=== PATIENT | female | born 1985 | race Caucasian/White ===

== ENCOUNTER → 2017-08-08 | Outpatient (CLI) | payer SELFPAY ==
[~2017-08-08] MED LIST: IODINE PO; VITA10002 PO; VITA500T10 PO
== END ==
LOC: HPND 10:09
PROVIDERS: ATTEND Obstetrics & Gynecology
DX: Z36.82 Encounter for antenatal screening for nuchal translucency (principal)
CPT/HCPCS: 36415; 76813

== ENCOUNTER → 2017-09-19 | Outpatient (CLI) | payer OTHER, MEDICAID | LOC: HPND 09:36 | PROVIDERS: ATTEND Obstetrics & Gynecology | DX: Z36.2 Encounter for other antenatal screening follow-up (principal) | CPT/HCPCS: 76805 ==

== ENCOUNTER → 2017-10-17 | Outpatient (CLI) | payer OTHER, MEDICAID | LOC: HPND 09:32 | PROVIDERS: ATTEND Obstetrics & Gynecology | DX: Z36.2 Encounter for other antenatal screening follow-up (principal) | CPT/HCPCS: 76816 ==

== ENCOUNTER 2018-02-05 09:43 | Inpatient (IN) ==
[2018-02-05] MEDS ORDERED: fentaNYL Citrate Inj 100 MCG/2 ML Ampul IV.PUSH PRN ×2 (11:04)
[2018-02-05] MEDS ORDERED: Sodium Chlor 0.9% Inj 500 ML IV.SIG ONE (11:04)
[2018-02-05] MEDS ORDERED: Naloxone Inj 0.4 MG/ML Vial IV.PUSH PRN ×2 (11:04→13:54)
[2018-02-05] MEDS ORDERED: ceFAZolin Inj 2,000 MG in Sodium Chlor 0.9% Inj 80 ML IV.SIG ONE (11:04)
[2018-02-05] MEDS ORDERED: Oxytocin 30 Units/500ml Premix 30 UNITS/500 ML BAG IV.SIG ONE ×2 (11:04→12:44)
[2018-02-05] MEDS ORDERED: Dextrose 5%/Lactated Ringer's 1,000 ML IV.SIG ONE (11:14)
[2018-02-05] MEDS ORDERED: Sod Chloride 0.9% Inj 1,000 ML IV.CONT SCH (11:15)
[2018-02-05] MEDS ORDERED: Citric Acid/Sodium Citrate Liq 15 ML UDC PO SCH (11:15)
[2018-02-05] MEDS ORDERED: Morphine Sulfate PF Inj 5 MG/10 ML Ampul ONE (11:22)
[2018-02-05] MEDS ORDERED: Citric Acid/Sodium Citrate Liq 30 ML UDC ONE (11:25)
--- NOTE | 2018-02-05 11:27 | ED ---
Triage/Final Diagnosis - Visit Information Date of evaluation: 02/05/18 Reason for evaluation: threatened labor - Evaluation Baseline heart rate: 150 (The patient appeared to have some late appearing decelerations. resuscitation was initiated wtih administration of oxygen, an IVF bolus, patient repositioning, and 0.25mg SQ terbutaline with resolution of heart rate decelerations and improvement of variability.) Variability: Average (6-10) monitor decelerations: Late Cervical dilation (cm): 4 Cervical effacement (%): 90 station: -2 Vital signs: Vital Signs - 24 hr 02/05/18 10:21 02/05/18 10:28 02/05/18 11:01 Temperature 98.3 F Pulse Rate 75 89 Respiratory Rate 20 Blood Pressure 157/100 H 146/90 H History of Present Illness Service: Dr. Dominique DAVIS Primary Care Physician: No Primary Care Physician Chief Complaint: Contractions History of Present Illness: 32-year-old 010, IUP at 38.6 care complicated by obesity The patient presents complaining of the onset of painful contractions at 5 PM last night. She reports they increased in intensity and frequency approximately 2 AM. She reports that at this time she is feeling 4-5 contractions an hour. She denies any alleviating factors are attempted treatments. She reports good movement. She denies any leaking of fluid or vaginal bleeding. She denies any headache, visual changes, right upper quadrant or epigastric pain. She has no other obstetrical complaints or concerns today. Weeks Gestation:: 38 Para: 0 : 2 Total # of Miscarriage(s): 1 Total # of Abortions (Spontaneous & Elective): 1 - Inpatient Certification If this patient has been admitted as an Inpatient: I certify that the inpatient services were ordered in accordance with Medicare regulations governing the order. This includes certification that hospital inpatient services are reasonable and necessary and in the case of services not specified as inpatient-only under 42 CFR 419.22(n), that they are appropriately provided as inpatient services in accordance to with the 2-midnight benchmark under 43 CFR 412.3(e) Estimated Total Length of Stay (Days): 3 Plans for Post Hospital Care: Home [facility] Medical history: Obesity Cognitive capacity: Normal Functional capacity: independent ambulation Patient : Yes Pertinent family history: CAD [place] HTN Depression DM Surgical history: Sinus surgery Tonsillectomy Smoking status: Never smoker Substance use type: does not use Alcohol intake: never Physical Exam Vital signs: Temp Pulse Resp BP 98.3 F 89 20 146/90 H 02/05/18 10:28 02/05/18 11:01 02/05/18 10:28 02/05/18 11:01 BP elevated, as per EMR - Constitutional no acute distress - Routine HEENT Exam Head: Present: normocephalic, atraumatic Eye: Present: EOMI, PERRL, conjunctivae pink ENT: Present: mucous membranes moist - Routine Respiratory Exam Present: CTA bilaterally - Routine Cardiovascular Exam Present: RRR - Routine Abdominal Exam Present: soft, normoactive bowel sounds Comments: Gravid, nontender, nondistended - Routine Exam Patient deferred: external exam External: Present: normal urethra appearance Perineal: Present: Intact - Detailed Labor and Delivery Exam Dilation (cm): 4 Effacement (%): 90 Cervix position: posterior station: -2 Consistency: soft Membranes: Intact - Routine Extremities Exam Present: full ROM - Routine Back/Spine/Pelvis Exam Back/Spine: Present: full ROM - Routine Skin Exam Present: intact, dry, warm - Routine Neurological Exam Present: alert, oriented X3, CN II-XII intact - Routine Psychiatric Exam Present: normal affect, normal thought process, cooperative, good insight, good judgment Assessment and Plan - Plan Assessment/plan: 1. IUP at 30.6 2. heart rate decelerations: Possible late appearing heart rate decelerations were noted in the OB ED. These heart rate decelerations have resolved with IV fluids, oxygen, repositioning, and subcutaneous terbutaline. Dr. Fox was notified and agreement with proceeding with primary delivery. The patient was consented for delivery including but not limited to pain, infection, bleeding, injury to other organs like the bladder/bowel/nerves/vessels, need for repeat operation, need for hysterectomy, need for a blood transfusion, wound infection/breakdown, injury to the baby, and other possible risks. All of patient's questions were answered and consent was signed. Preop orders were placed 3. Elevated blood pressures: Patient has no symptoms of preeclampsia but presented with elevated blood pressures. Preeclampsia workup was initiated and results are still pending. 4. Obesity 5. Early active versus late latent labor: The patient does not appear to be in full active labor. 6. Care was assumed by Dr. Fox. ADDENDUM: NST REPORT Indications: IUP at 38w, elevated BP, contractions, obesity heart rate with baseline in the 140s-150s, initially moderate buttermaker helper variability, but variability appeared to decrease and some possible late appearing decelerations were noted. resuscitative measures were performed with Oxygen administered, IVF bolus given, 0.25 mg terbutaline administered subcutaneously, and repositioning was performed. The decision was made to proceed with delivery. The decelerations resolved and variability improved. Dr. Fox assumed care for the patient who was taken to the OR. Final diagnosis: IUP at 38w, elevated BP consistent with preeclampsia, early labor, obesity. Follow up: continued monitoring until proceeded to OR Review of Systems All other systems reviewed negative except as stated in HPI (A complete ROS was performed)
[2018-02-05 11:32] LABS: Baso # (Auto) 0.1 th/mm3 (0.0-0.2); Baso % (Auto) 0.4 % (0.0-2.0); Eos # (Auto) 0.1 th/mm3 (0.0-0.4); Eos % (Auto) 0.8 % (0.0-4.0); Hematocrit 41.2 % (35.0-46.0); Hemoglobin 13.5 gm/dL (11.6-15.3); Lymph # (Auto) 2.1 th/mm3 (1.0-4.8); Lymph % (Auto) 17.1 % (9.0-44.0); Mean Corpuscular HGB Conc 32.8 % (32.0-36.0); Mean Corpuscular Hemoglobin 28.1 pg (27.0-34.0); Mean Corpuscular Volume 85.9 fL (80.0-100.0); Mean Platelet Volume 9.4 fL (7.0-11.0); Mono # (Auto) 0.6 th/mm3 (0.0-0.9); Neut # (Auto) 9.6 th/mm3 (1.8-7.7); Neut % (Auto) 76.7 % (16.0-70.0); Platelet Count 268 th/mm3 (150-450); Red Cell Distribution Width 15.8 % (11.6-17.2); White Blood Count 12.5 th/mm3 (4.0-11.0)
[2018-02-05 11:46] LABS: Amphetamine Urine With Conf Neg (Neg); Benzodiazepine Urine With Conf Neg (Neg)
[2018-02-05 11:47] LABS: Protein/Creatinine Ratio,Urine 2.23 (0.00-0.14)
[2018-02-05 11:56] LABS: Alkaline Phosphatase 171 U/L (45-117); Total Protein 6.9 g/dL (6.4-8.2)
--- NOTE | 2018-02-05 11:56 | MH ---
cc: Corby Fox MD DATE OF ADMISSION: 02/05/2018 ADMITTING DIAGNOSIS: Term , active labor with late decelerations. HISTORY OF PRESENT ILLNESS: The patient is a 32-year-old white female, para 0-0-1-0, LMP of 05/02/2017, EDC 02/06/2018 by dates and 02/13/2018 by early ultrasound. Her course has been benign. She had increasing contractions throughout the night. She is admitted now at 4 cm with repetitive late decelerations. She is now prepared for immediate section. PAST SURGICAL HISTORY: In 1992, a T and A; 2008, 2010, 2011 and 2016, she had sinus surgery. MEDICATIONS: Vitamins. ALLERGIES: NONE. TRANSFUSIONS: None. OBSTETRIC HISTORY: One spontaneous in 2016 at 5-6 weeks. SOCIAL HISTORY: She is single. She works at [employer] in the [employer] [facility]. Alcohol, tobacco and drugs are none. FAMILY HISTORY: Noncontributory. PHYSICAL EXAMINATION: GENERAL: She is a well-nourished, well-developed white female. VITAL SIGNS: Stable. HEENT: Normal. CHEST: Clear. HEART: Regular rate. BREASTS: Symmetrical. ABDOMEN: Gravid. EFW is 3500 grams. PELVIC: Cervix is 4, 90, intact, vertex. ASSESSMENT AND PLAN: Term , active labor with late decelerations. She is now prepared for immediate section delivery. The risks, benefits, and complications were explained and accepted. MD NICOLE Stevenson/HUYEN , 11:38 AM , 11:54 AM
[2018-02-05] MEDS ORDERED: Phenylephrine/NS 1000 MCG/10ML Syringe IV.PUSH ONE (12:00)
[2018-02-05 12:01] LABS: Alanine Aminotransferase 20 U/L (10-53); Albumin 2.6 g/dL (3.4-5.0); Anion Gap 12 meq/L (5-15); Aspartate Aminotransferase 25 U/L (15-37); Blood Urea Nitrogen 8 mg/dL (7-18); Calcium 8.9 mg/dL (8.5-10.1); Carbon Dioxide 20.5 meq/L (21.0-32.0); Chloride 108 meq/L (98-107); Glomerular Filtration Rate Greater Than 89 mL/min (>89); Glucose,Random 77 mg/dL (74-106); Sodium 140 meq/L (136-145); Uric Acid 7.1 mg/dl (2.6-6.0)
[2018-02-05 12:26] LABS: Cord Arterial Blood HCO3 23.5
[2018-02-05] MEDS ORDERED: Senna/Docusate Sodium 8.6/50 MG Tablet PO PRN (12:44)
[2018-02-05] MEDS ORDERED: Zolpidem Tartrate 5 MG Tablet PO PRN (12:44)
--- NOTE | 2018-02-05 12:48 | MP ---
cc: Corby Fox MD DATE OF OPERATION: 02/05/2018 PREOPERATIVE DIAGNOSES: 1. Term . 2. Active labor with late decelerations. POSTOPERATIVE DIAGNOSES: 1. Term . 2. Active labor with late decelerations. 3. Tight nuchal cord. 4. Partial abruption 5. Delivered. 6. Right paratubal cyst. PROCEDURE PERFORMED: 1. Primary low transverse section. 2. Removal of right paratubal cyst. ANESTHESIA: Spinal. SURGEON: Corby Fox MD FRUIT DUMPER: Maira ESTIMATED BLOOD LOSS: 500 mL. FLUIDS: 1.6 liters crystalloid. OBJECTIVE FINDINGS: Following induction of adequate spinal anesthesia, the patient was prepped and draped supine on the operating table in left lateral tilt position in the usual sterile fashion with the bladder being drained by Trujillo catheterization. The abdomen was opened through a Pfannenstiel incision using a knife to cut down through the skin to the fascia. The fascia opened transversely, stripped from the muscles, rectus muscle split in the midline and the peritoneum opened sharply without incident. The bladder flap was taken down sharply, retracted inferiorly with a Preet blade. The lower uterine segment incised transversely with a knife, extended with blunt dissection. Membranes ruptured revealing clear fluid. Baby was in the LOT position. The vacuum extractor applied to the occiput and used to gently lift the head through the uterine abdominal wound. Mouth was suctioned, cord clamped and cut and the baby passed to the awaiting team. A viable vigorous female, Apgars 9 and 9, weight 6 pounds even with a tight nuchal cord. Cord blood collected for typing and for ABG, ABG first, typing second. This was collected. There were a few clots behind the placenta with about 20% partial abruption. Uterine cavity wiped cleaned with laps. Uterus exteriorized and closed in 2 layers of running suture, first with a running locking stitch of 0 Vicryl, second with running imbricating stitch of 0 Vicryl. Posterior inspection was normal on the left. The right tube had a 3 cm paratubal cyst. The cyst wall was excised with a Bovie and sent for permanent study. The remainder of the tube and ovary were normal. The uterus was placed in the peritoneal cavity. Irrigation was performed. No bleeding was evident and the bladder flap was closed with a running stitch of 3-0 Vicryl. All laps and retractors were removed. Counts were correct. The anterior peritoneum closed with running 2-0 Vicryl. The fascia closed with a running #1 PDS corner to midline and tied, subcutaneous 3-0 Vicryl. The skin with a running subcuticular 3-0 Monocryl. Dermabond applied. All counts were correct and the patient was awakened and taken to the recovery room in good condition. MD NICOLE Stevenson/REBECCA , 12:33 PM , 12:46 PM
[2018-02-05] MEDS ORDERED: Oxytocin 30 Units/500ml Premix 30 UNITS/500 ML BAG ONE (13:07)
[2018-02-05] MEDS: Ketorolac Inj 30 MG/ML (IVP) Vial IV.PUSH PRN (17:34)
[2018-02-05] MEDS ORDERED: Oxytocin 30 Units/500ml Premix 30 UNITS/500 ML BAG IV.SIG PRN (17:44)
[2018-02-06] MEDS: Ketorolac Inj 30 MG/ML (IVP) Vial IV.PUSH PRN (03:41)
[2018-02-06 05:51] LABS: Baso % (Auto) 0.3 % (0.0-2.0); Eos # (Auto) 0.1 th/mm3 (0.0-0.4); Eos % (Auto) 0.6 % (0.0-4.0); Hemoglobin 11.5 gm/dL (11.6-15.3); Lymph # (Auto) 2.7 th/mm3 (1.0-4.8); Lymph % (Auto) 19.1 % (9.0-44.0); Mean Corpuscular HGB Conc 32.8 % (32.0-36.0); Mean Corpuscular Hemoglobin 28.1 pg (27.0-34.0); Mean Corpuscular Volume 85.6 fL (80.0-100.0); Mean Platelet Volume 8.3 fL (7.0-11.0); Mono # (Auto) 0.8 th/mm3 (0.0-0.9); Mono % (Auto) 5.4 % (0.0-8.0); Neut # (Auto) 10.7 th/mm3 (1.8-7.7); Neut % (Auto) 74.6 % (16.0-70.0); Platelet Count 221 th/mm3 (150-450); Red Blood Count 4.09 mil/mm3 (4.00-5.30); Red Cell Distribution Width 15.6 % (11.6-17.2); White Blood Count 14.3 th/mm3 (4.0-11.0)
--- NOTE | 2018-02-06 13:52 | MB ---
cc: Lara Bermudez MD DATE: 02/06/2018 REASON FOR CONSULTATION: Shortness of breath. HISTORY OF PRESENT ILLNESS: Mrs. Cantu is a 32-year-old female who is day 1 complaining of shortness of breath . The patient does have a longstanding history of bronchial asthma and allergic rhinitis. 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 Presently does not see a chemical lab technician or an paint stripper and does have albuterol, which she uses on occasion. Her chest wheeze has improved since she received the bronchodilator therapy. She did have intermittent wheezing throughout her , per her mother, who is at her bedside. She denies history of fever, chills, cough or expectoration. No shortness of breath at present. PAST MEDICAL HISTORY: Allergic rhinitis, and bronchial asthma. FAMILY HISTORY: Noncontributory. REVIEW OF SYSTEMS: A 12 point review of systems as per HPI and past history, otherwise negative. PHYSICAL EXAMINATION: GENERAL: On exam, the patient is alert. VITAL SIGNS: Temperature 98, pulse 70, respirations 18, blood pressure 130/78. HEENT: Unremarkable. Eyes without icterus. NECK: Without adenopathy, thyroid enlargement. Central trachea. CHEST: Scattered wheezes bilaterally. Good air movement. CARDIAC: PMI distant. S1, S2 audible. No murmur. No rub. ABDOMEN: Lax, bowel sounds audible. EXTREMITIES: No clubbing, cyanosis. Trace edema. IMPRESSION: 1. Bronchial asthma. 2. Allergic rhinitis. 3. . PLAN: 1. The patient was given Symbicort 160, to use 1 inhalation twice daily. 2. P.r.n. albuterol. 3. Obtain pulmonary function. 4. We will follow the patient's course along with you and, depending on progress, proceed further. I do thank you for asking me to partake in Mrs. Cantu care. Lara Bermudez MD WWW/TL , 01:37 PM , 01:51 PM
[2018-02-06] MEDS ORDERED: Measles/Mumps/Rubella Vaccine Inj 0.5 ML Vial SQ ONE (16:00)
[2018-02-06] MEDS ORDERED: Diphtheria/Tetanus/Pertussis Vaccine Inj 0.5 ML Syringe IM ONE (16:00)
[2018-02-06] MEDS: Ibuprofen 600 MG Tablet PO PRN (21:24)
[2018-02-06] MEDS: Budesonide-Formoterol 160/4.5 MCG 6 GM Inhaler INH SCH (21:51)
[2018-02-07] MEDS: Budesonide-Formoterol 160/4.5 MCG 6 GM Inhaler INH SCH ×2 (10:00→21:39)
[2018-02-07] MEDS: Ibuprofen 600 MG Tablet PO PRN ×2 (15:27→21:38)
--- NOTE | 2018-02-07 16:42 | P.PN ---
Subjective Interval history: ALERT NO DISTRESS OCCASIONAL WHEEZE Physical Exam Vital signs: Vital Signs 02/06/18 19:37 02/06/18 20:00 02/06/18 23:56 Temperature 98.3 F Pulse Rate 82 86 84 Respiratory Rate 14 18 12 Blood Pressure 135/93 H 02/07/18 03:26 02/07/18 07:09 02/07/18 08:38 Temperature 98.3 F Pulse Rate 80 80 97 H Respiratory Rate 12 15 18 Blood Pressure 140/96 H 02/07/18 12:14 Temperature Pulse Rate 79 Respiratory Rate 16 Blood Pressure - Routine Respiratory Exam Present: wheezes - Routine Abdominal Exam Present: soft Results - Labs CBC & Chem 7: 02/06/18 05:40 02/05/18 10:50 Assessment and Plan - Assessment (1) Asthma attack Code(s): J45.901 - Unspecified asthma with (acute) exacerbation Status: Acute - Plan Code Status: SYMBICRT BID PRN ALBUTEROL
[2018-02-08] MEDS: Ibuprofen 600 MG Tablet PO PRN (04:28)
--- NOTE | 2018-02-08 09:39 | P.PNOB ---
Subjective Post day: 3 (doibng well post CS) Objective Vital Signs/I&O: Vital Signs 02/07/18 12:14 02/07/18 17:15 02/07/18 20:00 Temperature 98.1 F Pulse Rate 79 82 97 H Respiratory Rate 16 20 20 Blood Pressure 157/97 H 02/07/18 20:32 02/07/18 20:45 02/07/18 23:45 Temperature 98.1 F Pulse Rate 97 H 98 H 82 Respiratory Rate 20 20 14 Blood Pressure 157/97 H 02/08/18 03:44 02/08/18 04:30 02/08/18 08:00 Temperature 98.2 F Pulse Rate 80 98 H 97 H Respiratory Rate 12 20 18 Blood Pressure 138/94 H 145/97 H 02/08/18 08:23 Temperature Pulse Rate 78 Respiratory Rate 15 Blood Pressure Result Diagrams: 02/06/18 05:40 02/05/18 10:50 Objective Remarks: GENERAL: Well-nourished, well-developed patient. ABDOMEN/GI: Abdomen soft, non-tender. Fundus: Firm, non-tender at umbilicus. GENITOURINARY: Light to moderate bleeding. EXTREMITIES: No cyanosis or edema, non-tender, without signs of DVT. Medications and IVs: Active Medications Albuterol (Albuterol Neb (Josué)) 2.5 mg NEB Q4HR NEB JOSUÉ Last Admin: 02/08/18 08:23 Dose: 2.5 mg Albuterol (Albuterol Neb (Prn)) 2.5 mg NEB Q2HR NEB PRN PRN Reason: WHEEZING Budesonide/Formoterol Fumarate (Symbicort 160/4.5 Mcg Inh) 1 puff INH BID [facility] Last Admin: 02/07/18 21:39 Dose: 1 puff Citric Acid/Sodium Citrate (Sod Citrate/Citric Acid Liq) 30 ml PO SECURITIES ADVISER [facility] Stop: 02/09/18 11:14 Lactated Ringer's (Lr 1000 Ml Inj) 1,000 mls @ 125 mls/hr IV.CONT .Q8H JOSUÉ Last Admin: 02/06/18 03:42 Dose: 125 mls/hr Sodium Chloride (Ns Inj) 1,000 mls @ 100 mls/hr IV.CONT .Q10H [facility] Lactated Ringer's (Lr 1000 Ml Inj) 1,000 mls @ 150 mls/hr IV.CONT .Q6H40M JOSUÉ Acetaminophen (Ofirmev Inj) 1,000 mg in 100 mls @ 200 mls/hr IV.SIG Q8H JOSUÉ Last Admin: 02/06/18 13:46 Dose: 200 mls/hr Ketorolac Tromethamine (Toradol Inj) 30 mg IV.PUSH Q6H PRN PRN Reason: POST CRAMPING Stop: 02/10/18 17:59 Last Admin: 02/06/18 03:41 Dose: 30 mg Lidocaine HCl (Xylocaine 1% Inj) 0.1 ml INFILTRATN PRN PRN PRN Reason: For IV start Stop: 02/08/18 11:03 Mineral Oil (Muri-Lube Oil) 10 ml TOPICAL PRN PRN PRN Reason: PRN perineal massage Naloxone HCl (Narcan Inj) 0.1 mg IV.PUSH Q2M PRN PRN Reason: for opiate reversal Ondansetron HCl (Zofran Odt) 4 mg PO Q6H PRN PRN Reason: NAUSEA Ondansetron HCl (Zofran Inj) 4 mg IV.PUSH Q6H PRN PRN Reason: NAUSEA Last Admin: 02/05/18 17:18 Dose: 4 mg Oxycodone/Acetaminophen (Percocet 5/325 Mg) 1 tab PO Q4H PRN PRN Reason: PAIN SCALE 3 TO 5 Last Admin: 02/08/18 04:28 Dose: 1 tab Oxycodone/Acetaminophen (Percocet 5/325 Mg) 2 tab PO Q4H PRN PRN Reason: PAIN SCALE 6 TO 10 Last Admin: 02/07/18 15:27 Dose: 2 tab Promethazine HCl (Phenergan Inj) 25 mg IM Q6H PRN PRN Reason: NAUSEA NOT RELIEVED BY ZOFRAN Last Admin: 02/05/18 19:44 Dose: 25 mg Senna/Docusate Sodium (Marj-Colace) 2 tab PO Q12H PRN PRN Reason: CONSTIPATION Sodium Chloride (Ns Flush) 2 ml IV.FLUSH BID JOSUÉ Sodium Chloride (Ns Flush) 2 ml IV.FLUSH PRN PRN PRN Reason: FLUSH AFTER USING IV ACCESS Zolpidem Tartrate (Ambien) 5 mg PO HS PRN PRN Reason: INSOMNIA Assessment and Plan - Diagnosis (1) delivery delivered Code(s): O82 - Encounter for delivery without indication Status: Acute - Plan Assessment/plan: 1. IUP at 30.6 2. heart rate decelerations: Possible late appearing heart rate decelerations were noted in the OB ED. These heart rate decelerations have resolved with IV fluids, oxygen, repositioning, and subcutaneous terbutaline. Dr. Fxo was notified and agreement with proceeding with primary delivery. The patient was consented for delivery including but not limited to pain, infection, bleeding, injury to other organs like the bladder/bowel/nerves/vessels, need for repeat operation, need for hysterectomy, need for a blood transfusion, wound infection/breakdown, injury to the baby, and other possible risks. All of patient's questions were answered and consent was signed. Preop orders were placed 3. Elevated blood pressures: Patient has no symptoms of preeclampsia but presented with elevated blood pressures. Preeclampsia workup was initiated and results are still pending. 4. Obesity 5. Early active versus late latent labor: The patient does not appear to be in full active labor. 6. Care was assumed by Dr. Fox. ADDENDUM: NST REPORT Indications: IUP at 38w, elevated BP, contractions, obesity heart rate with baseline in the 140s-150s, initially moderate transportation agent variability, but variability appeared to decrease and some possible late appearing decelerations were noted. resuscitative measures were performed with Oxygen administered, IVF bolus given, 0.25 mg terbutaline administered subcutaneously, and repositioning was performed. The decision was made to proceed with delivery. The decelerations resolved and variability improved. Dr. Fox assumed care for the patient who was taken to the OR. Final diagnosis: IUP at 38w, elevated BP consistent with preeclampsia, early labor, obesity. Follow up: continued monitoring until proceeded to OR Discharge Planning: patient has slightly elevated BP recheck with ashtyn next week
--- NOTE | 2018-02-08 09:50 | MD ---
cc: Corby Carbajal MD DATE OF DISCHARGE: 02/08/2018 HOSPITAL COURSE: This is a 32-year-old patient who came in. Dr. Fox did a section. She remained in the hospital 3 days doing very well. She will followup with Dr. Fox in 1 week. She had a slightly elevated blood pressure 140s/90 range. The patient will watch her blood pressure at home and notify him for any difficulties. The patient is on pelvic rest, regular diet and activity. No heavy lifting. She will get a prescription for Percocet #20 tablets. Corby Carbajal MD JWM/DL , 09:42 AM , 09:49 AM
== END 2018-02-08 12:48 | disposition home or self-care (01) ==
LOC: HOBED 09:43 → H2E 11:15 → H1EA 13:51
PROVIDERS: ADMIT Obstetrics & Gynecology; ATTEND Obstetrics & Gynecology
DX: O76 Abnormality in fetal heart rate and rhythm complicating labor and delivery; J45.909 Unspecified asthma, uncomplicated; Z3A.38 38 weeks gestation of pregnancy; Z37.0 Single live birth; R03.0 Elevated blood-pressure reading, without diagnosis of hypertension; O45.93 Premature separation of placenta, unspecified, third trimester; Z68.41 Body mass index [BMI] 40.0-44.9, adult; E66.9 Obesity, unspecified; O75.89 Other specified complications of labor and delivery; N83.8 Other noninflammatory disorders of ovary, fallopian tube and broad ligament; O99.214 Obesity complicating childbirth; O69.81X0 Labor and delivery complicated by cord around neck, without compression, not applicable or unspecified